=== PATIENT | male | born 1995 | race Caucasian/White ===

== ENCOUNTER 2016-06-14 20:10 | Emergency (ER) | payer OTHER ==
[2016-06-14] MEDS ORDERED: methylPREDNISolone Sod Succ/PF 125 MG/2 ML VIAL ONE (20:37)
[2016-06-14 20:53] LABS: ALT (SGPT) 20 U/L (0-55); AST (SGOT) 24 U/L (5-34); Alkaline Phosphatase 70 U/L (40-150); Anion Gap 13 mmol/L (10-20); BUN (Urea Nitrogen) 15 mg/dL (8.9-20.6); Bilirubin, Total 0.5 mg/dL (0.2-1.2); Calc. Creatinine Clearance 0 mL/min (70-130); Calcium 9.2 mg/dL (7.8-10.44); Carbon Dioxide 25 mmol/L (22-29); Chloride 105 mmol/L (98-107); Estimated GFR-MDRD 87; Globulin 2.9 g/dL (2.4-3.5)
[2016-06-14 21:02] LABS: Band 2 % (5-11); Hematocrit 47.2 % (42.0-52.0); Mean Platelet Volume 11.6 fL (7.4-10.4); Neutrophil 57 % (42-75); Red Blood Cell (RBC) Count 5.25 mill/uL (4.70-6.10); White Blood Cell (WBC) Count 8.2 thou/uL (4.8-10.8)
--- NOTE | 2016-06-14 22:01 | RAD ---
PORTABLE FRONTAL CHEST RADIOGRAPH 06/14/2016 HISTORY: Cough. Difficulty breathing. FINDINGS: No pneumothorax, pleural fluid, lobar consolidation, or alveolar edema. IMPRESSION No acute findings. POS: [facility]
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
== END 2016-06-14 21:34 | disposition home or self-care (01) ==
LOC: NAV ERS 20:10
DX: L50.0 Allergic urticaria (principal); S23.41XA Sprain of ribs, initial encounter; J06.9 Acute upper respiratory infection, unspecified; F32.9 Major depressive disorder, single episode, unspecified; F41.9 Anxiety disorder, unspecified; F17.210 Nicotine dependence, cigarettes, uncomplicated; F17.220 Nicotine dependence, chewing tobacco, uncomplicated; X58.XXXA Exposure to other specified factors, initial encounter
CPT/HCPCS: 71010; 80053; 85025; 93005; 96374; J2930

== ENCOUNTER 2017-09-06 09:01 | Emergency (ER) | payer BC, OTHER ==
[2017-09-06] MEDS ORDERED: Benzonatate 100 MG CAP ONE (09:25)
[2017-09-06] MEDS ORDERED: Amoxicillin/Potassium Clav 875 MG TAB ONE (09:26)
[2017-09-06] MEDS ORDERED: methylPREDNISolone Sod Succ/PF 125 MG/2 ML VIAL ONE (09:26)
[2017-09-06] MEDS ORDERED: Azithromycin 250 MG TAB ONE (09:34)
--- NOTE | 2017-09-06 11:01 | RAD ---
TWO VIEWS CHEST: HISTORY: Difficulty breathing. COMPARISON: 02/09/13, 06/14/16. FINDINGS: Normal cardiac silhouette. Pulmonary vessels and pulmonary hilum are normal. Costophrenic angles ar e clear. No masses or consolidation. No pneumothorax or osseous abnormalities. IMPRESSION: No acute cardiopulmonary process. POS: [facility]
== END 2017-09-06 10:06 | disposition home or self-care (01) ==
LOC: NAV ERS 09:01
DX: J20.9 Acute bronchitis, unspecified (principal); F41.9 Anxiety disorder, unspecified; F32.9 Major depressive disorder, single episode, unspecified; Z87.891 Personal history of nicotine dependence
CPT/HCPCS: 71046; 96372; J2930

== ENCOUNTER 2017-11-01 00:42 | Emergency (ER) | payer BC, SELFPAY | END 2017-11-01 01:25 | disposition short-term general hospital (02) | LOC: NAV ERS 00:42 | DX: N50.812 Left testicular pain (principal); F41.9 Anxiety disorder, unspecified; F32.9 Major depressive disorder, single episode, unspecified; F17.210 Nicotine dependence, cigarettes, uncomplicated | CPT/HCPCS: 99284 ==

== ENCOUNTER 2020-08-06 17:25 | Emergency (ER) | payer SELFPAY ==
[2020-08-06] MEDS ORDERED: Ondansetron ODT 4 MG TAB ONE (17:57)
[2020-08-07 05:53] LABS: SARS-CoV-2 PCR by NAA Not Detected (NotDetected)
== END 2020-08-06 18:10 | disposition home or self-care (01) ==
LOC: NAV ERS 17:25
DX: R11.2 Nausea with vomiting, unspecified (principal); R05 Cough; Z20.822 Contact with and (suspected) exposure to COVID-19; F17.210 Nicotine dependence, cigarettes, uncomplicated
CPT/HCPCS: 87635; 99284; Q0162; U0003; U0005

== ENCOUNTER 2021-03-16 22:00 | Emergency (ER) | payer BC, SELFPAY ==
[~2021-03-16 22:00] MED LIST: Iopamidol 370 76% 100 ML VIAL ONE
[2021-03-16] MEDS ORDERED: Aspirin Chewable 81 MG TAB ONE (22:23)
[2021-03-16] MEDS ORDERED: Nitroglycerin 0.4 MG TAB (25 Tab Bottle) ONE (22:24)
[2021-03-16 22:30] LABS: #Basophils 0.1 thou/uL (0.0-0.2); #Eosinphils 0.2 thou/uL (0.0-0.7); #Lymphocytes 3.8 thou/uL (1.20-3.40); #Monocytes 1.2 thou/uL (0.11-0.59); #Neutrophils 5.5 thou/uL (1.40-6.50); %Basophils 0.7 % (0.0-1.0); %Lymphocytes 35.4 % (21.0-51.0); %Monocytes 11.1 % (0.0-10.0); %Neutrophils 50.9 % (42.0-75.0); Hemoglobin 16.4 g/dL (14.0-18.0); Mean Corpuscular Hemoglobin 30.9 pg (27.0-31.0); Mean Corpuscular Volume 93.6 fL (78.0-98.0); Mean Platelet Volume 10.2 fL (7.4-10.4); Platelet Count 241 thou/uL (130-400); RBC Distribution Width 11.2 % (11.5-14.5); Red Blood Cell (RBC) Count 5.29 mill/uL (4.70-6.10); White Blood Cell (WBC) Count 10.8 thou/uL (4.8-10.8)
[2021-03-16 22:41] LABS: ALT (SGPT) 34 U/L (8-55); AST (SGOT) 22 U/L (5-34); Albumin 4.5 g/dL (3.5-5.0); Alkaline Phosphatase 53 U/L (40-110); Anion Gap 15 mmol/L (10-20); BUN (Urea Nitrogen) 20 mg/dL (8.9-20.6); Bilirubin, Total 1.3 mg/dL (0.2-1.2); Calc. Creatinine Clearance 0 mL/min (70-130); Calcium 9.9 mg/dL (7.8-10.44); Carbon Dioxide 26 mmol/L (22-29); Chloride 101 mmol/L (98-107); Globulin 3.1 g/dL (2.4-3.5); Glucose 72 mg/dL (70-105); Lipase 18 U/L (8-78); Potassium 3.7 mmol/L (3.5-5.1); Protein, Total 7.6 g/dL (6.0-8.3); Sodium 138 mmol/L (136-145)
== END 2021-03-16 23:55 | disposition home or self-care (01) ==
LOC: NAV ERS 22:00
DX: R07.9 Chest pain, unspecified (principal); M54.2 Cervicalgia; R55 Syncope and collapse; F17.290 Nicotine dependence, other tobacco product, uncomplicated; R06.02 Shortness of breath; M79.18 Myalgia, other site; Z79.899 Other long term (current) drug therapy
CPT/HCPCS: 70498; 71045; 80053; 83690; 84484; 85025; 93005; Q9967

== ENCOUNTER 2021-05-13 14:51 | Emergency (ER) | payer BC, SELFPAY ==
[2021-05-13] MEDS ORDERED: Ondansetron ODT 4 MG TAB ONE (15:30)
[2021-05-13] MEDS ORDERED: Ketorolac Tromethamine 60 MG/2 ML VIAL ONE (15:30)
== END 2021-05-13 16:04 | disposition home or self-care (01) ==
LOC: NAV ERS 14:51
DX: M26.601 Right temporomandibular joint disorder, unspecified (principal); K02.9 Dental caries, unspecified; F17.290 Nicotine dependence, other tobacco product, uncomplicated; R11.0 Nausea; R63.0 Anorexia
CPT/HCPCS: 96372; 99283; J1885; Q0162

== ENCOUNTER 2021-07-15 18:49 | Emergency (ER) | payer SELFPAY ==
[2021-07-17 13:50] LABS: SARS-CoV-2 PCR by NAA DETECTED (NotDetected)
== END 2021-07-15 19:16 | disposition home or self-care (01) ==
LOC: NAV ERS 18:49
DX: U07.1 COVID-19 (principal); J20.8 Acute bronchitis due to other specified organisms; F17.290 Nicotine dependence, other tobacco product, uncomplicated
CPT/HCPCS: 99284; U0003; U0005

== ENCOUNTER 2024-05-21 07:38 | Emergency (ER) | payer SELFPAY | END 2024-05-21 08:28 | disposition home or self-care (01) | LOC: NAV ERS 07:38 | DX: B34.9 Viral infection, unspecified (principal); F17.290 Nicotine dependence, other tobacco product, uncomplicated; Z55.6 Problems related to health literacy | CPT/HCPCS: 99283 ==

== ENCOUNTER 2024-05-30 16:49 | Emergency (ER) | payer OTHER, SELFPAY ==
[2024-05-30] MEDS ORDERED: diphenhydrAMINE 50 MG/ML VIAL ONE (17:58)
[2024-05-30] MEDS ORDERED: Prochlorperazine 10 MG/2 ML VIAL ONE (17:59)
[2024-05-30] MEDS ORDERED: Sodium Chloride 0.9% 500 ML ONE (17:59)
[2024-05-30] MEDS ORDERED: Ketorolac Tromethamine 30 MG (1 mL) VIAL ONE (17:59)
[2024-05-30 18:32] LABS: #Lymphocytes 1.1 thou/uL (1.20-3.40); #Neutrophils 6.1 thou/uL (1.40-6.50); %Basophils 0.5 % (0.0-1.0); %Eosinophils 0.5 % (0.0-10.0); %Lymphocytes 13.7 % (21.0-51.0); %Monocytes 11.5 % (0.0-10.0); %Neutrophils 73.8 % (42.0-75.0); Hematocrit 44.9 % (42.0-52.0); Hemoglobin 15.1 g/dL (14.0-18.0); Mean Corpuscular HGB CONC 33.7 g/dL (32.0-36.0); Mean Corpuscular Hemoglobin 29.5 pg (27.0-31.0); Mean Corpuscular Volume 87.7 fl (78.0-98.0); Mean Platelet Volume 8.9 fL (7.4-10.4); Platelet Count 268 10x3/uL (130-400); RBC Distribution Width 10.2 % (11.5-14.5); Red Blood Cell (RBC) Count 5.12 mill/uL (4.70-6.10); White Blood Cell (WBC) Count 8.3 10x3/uL (4.8-10.8)
[2024-05-30 18:46] LABS: Anion Gap 13 mmol/L (10-20); BUN (Urea Nitrogen) 18 mg/dL (8.9-20.6); Calc. Creatinine Clearance 0 mL/min (70-130); Calcium 9.3 mg/dL (7.8-10.44); Carbon Dioxide 24 mmol/L (22-29); Chloride 103 mmol/L (98-107); Estimated GFR 97; Glucose 95 mg/dL (70-105); Lipase 12 U/L (8-78); Potassium 3.2 mmol/L (3.5-5.1); Sodium 137 mmol/L (136-145)
[2024-05-30] MEDS ORDERED: Loperamide HCl 2 MG CAP ONE (18:49)
[2024-05-30] MEDS ORDERED: Potassium Chloride 20 MEQ TAB ONE ×2 (19:30→19:33)
== END 2024-05-30 19:45 | disposition home or self-care (01) ==
LOC: NAV ERS 16:49
DX: G43.909 Migraine, unspecified, not intractable, without status migrainosus (principal); R19.7 Diarrhea, unspecified; F17.290 Nicotine dependence, other tobacco product, uncomplicated
CPT/HCPCS: 80048; 83690; 85025; 96374; 96375; J0780; J1200; J1885; J7030